=== PATIENT | male | born 1945 | race Caucasian/White ===

== ENCOUNTER 2020-10-29 12:18 | Outpatient (CLI) | payer MEDICARE, BC | END 2020-10-29 23:59 | disposition home or self-care (01) | LOC: CVU 12:18 | PROVIDERS: ATTEND Internal Medicine Cardiovascular Disease | DX: I65.23 Occlusion and stenosis of bilateral carotid arteries (principal); I10 Essential (primary) hypertension; I25.10 Atherosclerotic heart disease of native coronary artery without angina pectoris | CPT/HCPCS: 93880 ==